=== PATIENT | male | born 1990 | race Two or more races ===

== ENCOUNTER 2018-09-08 10:52 | Emergency (ER) | payer OTHER ==
[2018-09-08 11:26] VITALS: BP 128/86; PULSE 87; TEMP 98.2
[2018-09-08 13:15] LABS: ANION GAP 6 MMOL/L (8-16); BLOOD UREA NITROGEN 15 mg/dL (7-18); CHLORIDE 107 mmol/L (98-107); CO2 27 mmol/L (21-32); CREATININE 1.1 mg/dL (0.55-1.3); GLUCOSE,RANDOM 100 mg/dL (74-106); POTASSIUM 4.2 mmol/L (3.5-5.1); SODIUM 139 mmol/L (136-145)
[2018-09-08 14:04] LABS: BASO % 0.6 % (0-2.0); EOS % 3.8 % (0-4.5); HEMATOCRIT 42.7 % (35.4-49); HEMOGLOBIN 15.3 GM/dL (11.7-16.9); LYMPH % 32.5 % (8-40); MCH 30.8 pg (25.7-33.7); MCHC 35.8 g/dl (32.0-35.9); MEAN CELL VOLUME 86.1 fl (80-96); MONO % 6.9 % (3.8-10.2); NEUT % 56.2 % (42.8-82.8); PLATELET COUNT 258 K/MM3 (134-434); RBC 4.96 M/mm3 (4.00-5.60); WHITE BLOOD COUNT 9.5 K/mm3 (4.0-10.0)
--- NOTE | 2018-09-08 14:47 | PDOC ---
History of Present Illness - General Chief Complaint: Chest Pain Stated Complaint: CHEST PAIN Time Seen by Provider: 09/08/18 11:40 History Source: Patient Exam Limitations: No Limitations - History of Present Illness Initial Comments: 28 y/o M hx of HTN, HLD, smoker (smokes 3-4 cigs/day) presents with L and R sided CP x 3-4 months, occurring more frequently for the past 2-3 weeks. Mentions he has been following with a finishing machine operator, Dr. Nika Cullen, and had a stress test done a month ago, which was negative. However, was concerned given his history. CP is not exertional and not worsened or relieved by anything. States his father had CAD (had 8 stents placed) and multiple members in his father's side of family have CAD. Denies fever, chills, cough, sob, abd pain, n/v, dizziness, palpitations. 09/08/18 14:40 Past History - Past Medical History Allergies/Adverse Reactions: Allergies Allergy/AdvReac Type Severity Reaction Status Date / Time No Known Allergies Allergy Verified 09/08/18 11:24 Home Medications: Ambulatory Orders Atorvastatin Ca [Lipitor] 40 mg PO HS 09/08/18 Metoprolol Succinate 50 mg PO DAILY 09/08/18 COPD: No CHF: No HTN: Yes Hypercholesterolemia: Yes - Suicide/Smoking/Psychosocial Hx Smoking History: Never smoked Have you smoked in the past 12 months: No Number of Cigarettes Smoked Daily: 2 Information on smoking cessation initiated: No Hx Alcohol Use: No Drug/Substance Use Hx: No Substance Use Type: None Review of Systems - Review of Systems Comments:: See HPI 09/08/18 14:44 *Physical Exam - Vital Signs Last Vital Signs Temp Pulse Resp BP Pulse Ox 98.2 F 87 16 128/86 100 09/08/18 11:19 09/08/18 11:19 09/08/18 11:19 09/08/18 11:19 09/08/18 11:19 - Physical Exam General Appearance: No: Apparent Distress Respiratory/Chest: positive: Lungs Clear, Normal Breath Sounds. negative: Respiratory Distress Cardiovascular: positive: Regular Rhythm, Regular Rate, S1, S2. negative: Murmur Gastrointestinal/Abdominal: positive: Normal Bowel Sounds, Soft. negative: Tender, Distended, Guarding, Rebound Extremity: positive: Normal Inspection. negative: Pedal Edema, Calf Tenderness Neurologic: positive: Fully Oriented, Alert, Normal Mood/Affect ED Treatment Course - LABORATORY CBC & Chemistry Diagram: 09/08/18 12:34 09/08/18 12:34 - ADDITIONAL ORDERS Additional order review: Laboratory Results 09/08/18 12:34 Sodium 139 Potassium 4.2 Chloride 107 Carbon Dioxide 27 Anion Gap 6 L BUN 15 Creatinine 1.1 Creat Clearance w eGFR > 60 Random Glucose 100 Calcium 9.0 Troponin I < 0.02 09/08/18 12:34 RBC 4.96 MCV 86.1 MCHC 35.8 RDW 13.0 MPV 8.0 Neutrophils % 56.2 Lymphocytes % 32.5 Monocytes % 6.9 Eosinophils % 3.8 Basophils % 0.6 - RADIOLOGY Radiology Studies Ordered: Category Date Time Status CHEST PA & LAT [RAD] Stat Radiology 09/08/18 12:15 Completed Medical Decision Making - Medical Decision Making 28 y/o M hx of HTN, HLD, smoker, +FH of CAD presents with CP 3-4 months, worse the past 2-3 weeks. Patient with risk factors for ACS. Labs done and were unremarkable; trop neg. EKG showed NSR at 86 bpm, T wave flattening in inferior leads (no prior to compare to). CXR negative. Given patient had recent negative stress test 1 month ago and given reassuring labs, less concerned for ACS. Advised patient to f/u with his finishing machine operator. 09/08/18 14:51 *DC/Admit/Observation/Transfer Diagnosis at time of Disposition: Chest pain - Discharge Dispostion Disposition: HOME Condition at time of disposition: Good Decision to Admit order: No - Referrals Referrals: Iván Downs [Primary Care Provider] - 3 days - Patient Instructions Printed Discharge Instructions: DI for Chest Pain Additional Instructions: Thank you for choosing [facility]. It was a pleasure taking care of you. You came here for chest pain. Your labs and CXR were unremarkable. Please follow-up with your PCP and finishing machine operator. Return to the Emergency Department if your symptoms worsen or persist, you have fever, shortness of breath, chest pain, severe abdominal pain, vomiting, dizziness, weakness of extremities (arms and/or legs) or other concerning symptoms. - Post Discharge Activity
--- NOTE | 2018-09-09 13:45 | EKG ---
Test Reason : Blood Pressure : / mmHG Vent. Rate : 086 BPM Atrial Rate : 086 BPM P-R Int : 140 ms QRS Dur : 082 ms QT Int : 356 ms P-R-T Axes : 024 069 039 degrees QTc Int : 426 ms NORMAL SINUS RHYTHM NONSPECIFIC ST AND T WAVE ABNORMALITY ABNORMAL ECG NO PREVIOUS ECGS AVAILABLE Confirmed by CHANTELL BACON MD ([id number]) on 09/09/2018 1:44:54 PM Referred By: Confirmed By:CHANTELL BACON MD
== END 2018-09-08 15:07 | disposition home or self-care (01) ==
LOC: JER 10:52
DX: R07.9 Chest pain, unspecified (principal); I10 Essential (primary) hypertension; E78.00 Pure hypercholesterolemia, unspecified
CPT/HCPCS: 36415; 71046-TC-FY; 80048; 84484; 85025; 93005; 93010; 99282-25

== ENCOUNTER 2021-04-12 07:22 | Emergency (ER) | payer BC ==
[2021-04-12 07:35] VITALS: BP 140/97; PULSE 102; BMI 28.2
[2021-04-12 07:36] VITALS: TEMP 98
[2021-04-12] MEDS ORDERED: KETOROLAC TROMETHAMINE 60 MG/2 ML VIAL IM ONE (08:11)
[2021-04-12] MEDS ORDERED: COLCHICINE 0.6 MG TAB PO ONE (08:11)
[2021-04-12] MEDS ORDERED: KETOROLAC TROMETHAMINE 30 MG/1 ML VIAL ONE (08:17)
== END 2021-04-12 10:25 | disposition home or self-care (01) ==
LOC: JERFT 07:22
PROC: 3E0233Z Introduction of Anti-inflammatory into Muscle, Percutaneous Approach (ICD-10-PCS; principal; 2021-04-12)
DX: M10.9 Gout, unspecified (principal)
CPT/HCPCS: 73630-TC-RT-FY; 96372; 99283-25; G0463-25

== ENCOUNTER 2025-03-14 16:06 | Emergency (ER) | payer BC ==
[2025-03-14 16:19] VITALS: BP 147/95; PULSE 76; RESP 18; TEMP 98.1; BMI 26.6
[2025-03-14] MEDS ORDERED: KETOROLAC TROMETHAMINE 30 MG/1 ML VIAL ONE (17:16)
[2025-03-14] MEDS ORDERED: ACETAMINOPHEN 500 MG TABLET (FP) ONE (17:16)
[2025-03-14] MEDS ORDERED: LIDOCAINE 5% TOPICAL PATCH ONE (17:17)
[2025-03-14] MEDS: ACETAMINOPHEN 500 MG TABLET (FP) PO ONE (17:20)
[2025-03-14] MEDS: LIDOCAINE 5% TOPICAL PATCH TP ONE (17:27)
[2025-03-14] MEDS: KETOROLAC TROMETHAMINE 30 MG/1 ML VIAL IM ONE (17:27)
[2025-03-14] MEDS ORDERED: LIDOCAINE PATCH REMOVAL MC SCH (22:00)
== END 2025-03-14 17:53 | disposition home or self-care (01) ==
LOC: FER 16:06
PROC: 3E0233Z Introduction of Anti-inflammatory into Muscle, Percutaneous Approach (ICD-10-PCS; principal; 2025-03-14)
DX: M54.50 Low back pain, unspecified (principal); X50.0XXA Overexertion from strenuous movement or load, initial encounter
CPT/HCPCS: 99284-25

== ENCOUNTER 2025-05-16 06:35 | Day surgery (SDC) | payer BC ==
[2025-05-16] MEDS ORDERED: DEXAMETHASONE SOD PHOSPHATE 10 MG/1 ML VIAL ONE (07:37)
[2025-05-16] MEDS ORDERED: LIDOCAINE HCL/PF 1% SDV 5ML VIAL ONE (07:46)
[2025-05-16 08:43] VITALS: RESP 18
[2025-05-16 11:37] VITALS: BP 134/91; PULSE 76; TEMP 97.5
[2025-05-16] MEDS ORDERED: ACETAMINOPHEN 500 MG TABLET (FP) PO PRN (13:56)
== END 2025-05-16 11:37 | disposition home or self-care (01) ==
LOC: JASU-SURG 06:35
PROVIDERS: ATTEND Pain Medicine Pain Medicine
PROC: 3E0R3BZ Introduction of Anesthetic Agent into Spinal Canal, Percutaneous Approach (ICD-10-PCS; 2025-05-16)
PROC: 3E0R33Z Introduction of Anti-inflammatory into Spinal Canal, Percutaneous Approach (ICD-10-PCS; principal; 2025-05-16 10:56)
DX: M54.12 Radiculopathy, cervical region (principal)
CPT/HCPCS: 76000-TC-FY; J1100